=== PATIENT | male | born 1955 | race Caucasian/White ===

== ENCOUNTER → 2021-09-28 | Outpatient (CLI) | payer BC ==
[~2021-09-28] MED LIST: ALBUTEROL1.25 MG/3 INH; ALDACTONE25 MG PO; ANORO ELLIPTA1 EACH INH; AZOR 10-40 MG1 EACH PO; BISOPROLOL FUMA10 MG PO; CRESTOR40 MG PO; FLOMAX 0.4 MG0.4 MG PO; IBUPROFEN800 MG PO; IRON 100 PLUS1 EACH PO; JANTOVEN2 MG PO; NEURONTIN800 MG PO; VITAMIN D375 MCG PO
== END ==
LOC: KOH-I 11:58
DX: S62.212D Bennett's fracture, left hand, subsequent encounter for fracture with routine healing (principal)
CPT/HCPCS: 73200

== ENCOUNTER → 2021-10-01 | Day surgery (SDC) | payer BC ==
[~2021-10-01] VITALS: Ht 185.4 cm; Wt 78.9 kg
[2021-10-01 10:48] LABS: HEMOGLOBIN 13.1 gm/dl (14.0-17.5); RED BLOOD COUNT 4.29 M/UL (4.20-5.50); WHITE BLOOD COUNT 6.2 K/UL (4.5-11.0)
[2021-10-01 11:03] LABS: BUN/CREATININE RATIO 15 (0-10)
== END | disposition home or self-care (01) ==
LOC: OR 09:54
PROVIDERS: Orthopaedic Surgery
DX: S62.212A Bennett's fracture, left hand, initial encounter for closed fracture (principal); S62.232A Other displaced fracture of base of first metacarpal bone, left hand, initial encounter for closed fracture; I10 Essential (primary) hypertension; X58.XXXA Exposure to other specified factors, initial encounter; E78.5 Hyperlipidemia, unspecified; J44.9 Chronic obstructive pulmonary disease, unspecified; F17.200 Nicotine dependence, unspecified, uncomplicated; Z20.822 Contact with and (suspected) exposure to COVID-19; Z95.2 Presence of prosthetic heart valve; Z79.01 Long term (current) use of anticoagulants; Z79.1 Long term (current) use of non-steroidal anti-inflammatories (NSAID); Z79.899 Other long term (current) drug therapy
CPT/HCPCS: 71045; 73130; 76000; 80048; 85027; 85610; 93005; C1713; C1762; J0690; J1100; J1170; J2001; J2405; J2704; J3010; J7120; U0002

== ENCOUNTER 2021-10-14 09:40 | Emergency (ER) | payer BC | END 2021-10-14 11:44 | disposition home or self-care (01) | LOC: ER1 09:40 | DX: G89.18 Other acute postprocedural pain (principal); M79.642 Pain in left hand; E11.9 Type 2 diabetes mellitus without complications; I10 Essential (primary) hypertension; E78.5 Hyperlipidemia, unspecified; J44.9 Chronic obstructive pulmonary disease, unspecified; F17.200 Nicotine dependence, unspecified, uncomplicated; Z95.1 Presence of aortocoronary bypass graft | CPT/HCPCS: 29125; 99283 ==